=== PATIENT | female | born 1960 | race Caucasian/White ===

== ENCOUNTER 2016-08-14 13:13 | Emergency (ER) | payer SELFPAY ==
[2016-08-28] MEDS ORDERED: DELTASONE DPS20 MG PO (12:00)
[2016-08-28] MEDS ORDERED: AZITHROMYCIN500 MG PO (12:01)
[2016-08-28] MEDS ORDERED: NITROSTAT0.4 MG SL (12:01)
[2016-11-20] MEDS ORDERED: ASA CHILDREN'S81 MG PO (11:33)
[2016-11-20] MEDS ORDERED: DUONEB DPS3 ML IH (11:34)
[2016-11-20] MEDS ORDERED: COLACE-DPS100 MG PO (11:34)
[2016-11-20] MEDS ORDERED: TYLENOL DPS325 MG PO (11:34)
[2016-11-20] MEDS ORDERED: LOPRESSOR DPS50 MG PO (11:34)
[2016-11-20] MEDS ORDERED: PRILOSEC DPS20 MG PO (11:34)
== END 2016-08-14 14:40 | disposition home or self-care (01) ==
DX: R31.9 Hematuria, unspecified (principal); Z87.442 Personal history of urinary calculi; Z90.710 Acquired absence of both cervix and uterus; Z90.49 Acquired absence of other specified parts of digestive tract

== ENCOUNTER 2016-08-17 12:45 | Emergency (ER) | payer SELFPAY ==
[2016-08-28] MEDS ORDERED: DELTASONE DPS20 MG PO (12:00)
[2016-08-28] MEDS ORDERED: NITROSTAT0.4 MG SL (12:01)
[2016-08-28] MEDS ORDERED: AZITHROMYCIN500 MG PO (12:01)
--- NOTE | 2016-08-29 09:38 | ER ---
ADMIT: 08/17/2016 RM/LOC: ER [facility] MR#: [id number] [address] [address] MASTER ANGLINRHETT Percy [address] [place] [address] [place] [address] Emergency Room Report SEX: F AGE: 55 : 1960 DATE: 08/17/2016 ADDENDUM: CHIEF COMPLAINT: Dental pain. HISTORY OF PRESENT ILLNESS: This is a 55-year-old female, who has been having dental pain for the last 12 hours, going up on her left side of her face. There really is not any swelling that is noticed by me, she does have multiple dental decay. She said she has seen a dentist on 09/04 to have all her teeth pulled. CLINICAL IMPRESSION: Abscess to tooth #22, also multiple dental caries. DISPOSITION: Sent her home with amoxicillin for 10 days. I did offer to do an injection to numb the mouth. She refuses the injection, so I told her to continue Motrin and Tylenol for pain. CLINICAL IMPRESSION: 1. Abscess to her tooth. 2. Multiple dental caries. RACHEL Lee / Mir Alas MD / gerard JOB #: [id number] CC: Mir Alas MD, Attending Physician Jorge Jon MD, Family Physician
[2016-11-20] MEDS ORDERED: ASA CHILDREN'S81 MG PO (11:33)
[2016-11-20] MEDS ORDERED: COLACE-DPS100 MG PO (11:34)
[2016-11-20] MEDS ORDERED: DUONEB DPS3 ML IH (11:34)
[2016-11-20] MEDS ORDERED: LOPRESSOR DPS50 MG PO (11:34)
[2016-11-20] MEDS ORDERED: TYLENOL DPS325 MG PO (11:34)
[2016-11-20] MEDS ORDERED: PRILOSEC DPS20 MG PO (11:34)
== END 2016-08-17 14:05 | disposition home or self-care (01) ==
LOC: ER 12:45
DX: K04.7 Periapical abscess without sinus (principal); K02.9 Dental caries, unspecified; F17.210 Nicotine dependence, cigarettes, uncomplicated; Z88.8 Allergy status to other drugs, medicaments and biological substances; Z79.899 Other long term (current) drug therapy

== ENCOUNTER 2016-08-26 23:18 | Observation (INO) | payer SELFPAY ==
[~2016-08-26] VITALS: Ht 172.7 cm; Wt 82.5 kg
--- NOTE | 2016-08-27 21:22 | HP ---
ADMIT: 08/27/2016 RM/LOC: 313 [facility]#: [id number] [id number] [address] [address] FELISHA ANGLIN [address] [place] [address] ROB [place]ZQUEZ [id number] History and Physical SEX: F AGE: 55 : 1960 DATE OF SERVICE: CHIEF COMPLAINT: Chest pain. HISTORY OF PRESENT ILLNESS: This is a 55-year-old female with past medical history of tobacco abuse, presented with some left-sided chest pain. She reported she had some radiation to her left arm. It happened about 3 hours prior to presenting to the emergency room. This started suddenly while she was at rest and she said it was severe and described as tight, dull, and then radiates to her left arm which is almost like a tingling sensation. In the emergency room, she said she has some shortness of breath and associated nausea and weakness. She was concerned that this was recurrence of her pneumonia that she had about 3 weeks ago; however, she is not coughing, not having any fever or chills at this time although she said she was not then either. She does complain that she had a little bit of a cold yesterday in her sinuses and she thinks this has gone to her chest a little bit, so she has a mild cough now. At the time I was talking to her, she said she has very mild chest pain now and can barely notice it; when I asked her the number, she said it is 4/10 in severity. PAST MEDICAL HISTORY: Nothing. MEDICATIONS: None. PAST SURGICAL HISTORY: Appendectomy, cholecystectomy, and partial hysterectomy. FAMILY HISTORY: Mom at 79; she had heart disease, history of strokes, and diabetes. Father at 81; he had heart disease and strokes as well. She has a sister who has had a CABG, and she has another sister with COPD. SOCIAL HISTORY: She has smoked about half pack a day for 30 years. She has recently moved from [place] with her . She is not currently employed. REVIEW OF SYSTEMS: Other complete review of systems was obtained and negative except as above. PHYSICAL EXAMINATION: VITAL SIGNS: Temperature 96.8, pulse 74, respirations 14, blood pressure 127/80, oxygen saturation 97% to 99% on room air. GENERAL: This is a well-appearing 55-year-old female. She is in no apparent distress. She is alert and oriented. HEENT: Head is normocephalic and atraumatic. Pupils are equal, round, and reactive to light and accommodation. Her extraocular muscles are intact. She has poor dentition. NECK: Supple. Trachea midline. Thyroid not palpable. HEART: Regular rate and rhythm. LUNGS: Diminished with end-expiratory wheezes bilaterally. ABDOMEN: Soft, without any tenderness. Normal bowel sounds. EXTREMITIES: Lower extremities have no edema. She can move all extremities ADMIT: 08/27/2016 RM/LOC: 313 [facility] MR#: [id number] [address] [place] [id number] FELISHA ANGLIN [address] [place] [address] History and Physical SEX: F AGE: 55 : 1960 equally bilaterally. No abnormal rashes. NEURO: Cranial nerves are intact. LABORATORY AND X-RAY DATA: CK, troponin, and MB, all normal. EKG is normal sinus rhythm. CBC with a white count of 7.9, hemoglobin 13.9, platelets of 211. BMP; sodium 143, potassium 3.7, chloride 110, BUN 8, creatinine 0.7. Chest x-ray shows no consolidation or pathology. ASSESSMENT: 1. Chest pain. 2. Tobacco abuse. 3. Chronic obstructive pulmonary disease with exacerbation. PLAN: She has been admitted to the hospital under observation. We will monitor on telemetry, monitor cardiac enzymes. Treat her with aspirin. She has already been given nitroglycerin and this has reduced her symptoms. Her symptoms are not completely gone and we will monitor enzymes and if they come back normal, then chance of this pain being cardiac is low. Also, we have another competing reason, and her COPD with exacerbation given her long-time history of smoking and current wheezing with onset of her cold yesterday is likely a possible etiology as well. We will treat her with prednisone and antibiotics for this as well. Roe Burns MD/ gerard JOB #: [id number] CC: Roe Burns, Attending Physician Roe Burns, Family Physician
[2016-08-28] MEDS ORDERED: DELTASONE DPS20 MG PO (12:00)
[2016-08-28] MEDS ORDERED: AZITHROMYCIN500 MG PO (12:01)
[2016-08-28] MEDS ORDERED: NITROSTAT0.4 MG SL (12:01)
--- NOTE | 2016-09-01 08:46 | ER ---
ADMIT: 08/27/2016 RM/LOC: 313 [facility] MR#: [id number] [address] [address] FELISHA ANGLIN [address] [facility] [place] [address] Emergency Room Report SEX: F AGE: 55 : 1960 DATE: 08/26/2016 HISTORY OF PRESENT ILLNESS: A 55-year-old female who comes to the Emergency Department with 2-1/2 to 3 hours worth of long chest pain. Started as sudden onset, constant. It occurred while at rest. States it is severe. Described tightness, dull, sharp pressure radiating down the left arm. She also complained of shortness of breath, nausea, and weakness. It is worsened by activity. No relief by anything. She has not had similar symptoms in the past, not recently been seen by a physician. REVIEW OF SYSTEMS: Essentially negative. PAST MEDICAL HISTORY: Partial hysterectomy. She smokes but does not drink. She states she has a strong cardiac family history. PHYSICAL EXAMINATION: GENERAL: Reveals a 55-year-old female, in no acute distress. LUNGS: Clear to auscultation. CARDIOVASCULAR: Regular rate and rhythm. ABDOMEN: Soft, nontender. EXTREMITIES: Unremarkable. EDUCATION SALES CONSULTANT: No focal findings. LABORATORY DATA: EKG showed early R-wave transition. CBC and CMP within normal limits. First set of cardiac enzymes were also within normal limits. DIAGNOSIS: The patient was diagnosed with chest pain, admitted for rule out. Rad Reid MD/ gerard JOB #: [id number] CC: Roe Burns MD, Attending Physician Roe Burns MD, Family Physician
--- NOTE | 2016-09-04 06:50 | DS ---
ADMIT: 08/27/2016 RM/LOC: 313 [facility] MR#: [id number] [address] [address] FELISHA ANGLIN [address] [place] [address] [place] [address] General Discharge Summary SEX: F AGE: 55 : 1960 ADMISSION DATE: 08/27/2016 DISCHARGE DATE: 08/27/2016 FINAL DIAGNOSES: 1. Chest pain. 2. Chronic obstructive pulmonary disease with exacerbation. 3. Dental caries. I. DISCHARGE MEDICATIONS: 1. Prednisone 40 mg daily for four days. 2. Azithromycin 500 mg daily for three days. DISCHARGE INSTRUCTIONS: Follow up with me or her regular doctor in 1 to 2 weeks of her choosing. Roe Burns MD/ roxil JOB #: [id number] CC: Roe Burns MD, Attending Physician Roe Burns MD, Family Physician
[2016-11-20] MEDS ORDERED: ASA CHILDREN'S81 MG PO (11:33)
[2016-11-20] MEDS ORDERED: LOPRESSOR DPS50 MG PO (11:34)
[2016-11-20] MEDS ORDERED: COLACE-DPS100 MG PO (11:34)
[2016-11-20] MEDS ORDERED: PRILOSEC DPS20 MG PO (11:34)
[2016-11-20] MEDS ORDERED: TYLENOL DPS325 MG PO (11:34)
[2016-11-20] MEDS ORDERED: DUONEB DPS3 ML IH (11:34)
== END 2016-08-27 17:19 | disposition home or self-care (01) ==
LOC: ER 23:18 → 3ICU 08-27 00:39
PROVIDERS: ADMIT Internal Medicine
DX: R07.9 Chest pain, unspecified (principal); J44.1 Chronic obstructive pulmonary disease with (acute) exacerbation; K02.9 Dental caries, unspecified; F17.210 Nicotine dependence, cigarettes, uncomplicated; Z90.49 Acquired absence of other specified parts of digestive tract; Z90.711 Acquired absence of uterus with remaining cervical stump; Z88.6 Allergy status to analgesic agent; Z88.8 Allergy status to other drugs, medicaments and biological substances

== ENCOUNTER 2016-09-25 22:17 | Emergency (ER) | payer SELFPAY ==
[~2016-09-25 22:17] MED LIST: AZITHROMYCIN500 MG PO; DELTASONE DPS20 MG PO; NITROSTAT0.4 MG SL
--- NOTE | 2016-09-29 13:14 | ER ---
ADMIT: 09/25/2016 RM/LOC: ER [facility] MR#: [id number] [address] [address] FELISHA ANGLIN [address] [place] [address] Emergency Room Report SEX: F AGE: 56 : 1960 DATE: 09/25/2016 HISTORY OF PRESENT ILLNESS: The patient is a 56-year-old female with no chronic past medical history, was brought to the ER with chief complaint of 3 hours of anterior mid chest pain and chest discomfort, which has started gradually and is continuous. There is no radiation. The patient denies any diaphoresis. The patient denies any shortness of breath and chest pain is not pleuritic. PHYSICAL EXAMINATION: VITAL SIGNS: The patient has stable vitals. GENERAL: In mild distress. HEAD AND NECK: Normal. There is no bruit on the neck. CHEST: Clear bilaterally normal. HEART: Sounds without any murmurs. ABDOMEN: Soft and nontender and there is no pulsating mass. EXTREMITIES: The patient has no swelling or tenderness in lower extremities too. The rest of the physical examination is negative. IMAGING: EKG did not show any ST or T changes or Q-waves or arrhythmia, cardiac enzymes are negative. Chest x-ray is normal, pain was controlled. The patient received aspirin p.o. in the ER, the patient also received 3 doses of nitroglycerin 0.4 mg sublingual, which did not change the pain. Pain was moderately controlled with IV morphine. The patient was reexamined, did not develop any new symptoms, was stable in no pain or distress and was stable to be discharged home. DIAGNOSIS: Atypical chest pain. Joe Morrison MD/ gerard JOB #: [id number] CC: Joe Morrison MD, Attending Physician Jose Miguel Mock MD, Family Physician
[2016-11-20] MEDS ORDERED: ASA CHILDREN'S81 MG PO (11:33)
[2016-11-20] MEDS ORDERED: LOPRESSOR DPS50 MG PO (11:34)
[2016-11-20] MEDS ORDERED: DUONEB DPS3 ML IH (11:34)
[2016-11-20] MEDS ORDERED: PRILOSEC DPS20 MG PO (11:34)
[2016-11-20] MEDS ORDERED: COLACE-DPS100 MG PO (11:34)
[2016-11-20] MEDS ORDERED: TYLENOL DPS325 MG PO (11:34)
== END 2016-09-26 00:50 | disposition home or self-care (01) ==
LOC: ER 22:17
DX: R07.89 Other chest pain (principal); F17.200 Nicotine dependence, unspecified, uncomplicated; Z90.49 Acquired absence of other specified parts of digestive tract; Z90.710 Acquired absence of both cervix and uterus; Z88.6 Allergy status to analgesic agent

== ENCOUNTER 2016-10-09 19:17 | Emergency (ER) | payer SELFPAY ==
--- NOTE | 2016-10-15 19:38 | ER ---
ADMIT: 10/09/2016 RM/LOC: ER [facility] MR#: [id number] [address] [address] FELISHA ANGLIN [address] [place] [address] Emergency Room Report SEX: F AGE: 56 : 1960 DATE: 10/09/2016 CHIEF COMPLAINT: Neck pain. HISTORY OF PRESENT ILLNESS: A 56-year-old white female, who presents to the ER complaining of neck pain and headache. States she turned her neck wrong about 9 hours prior to arrival. Has been increasing neck pain for the last 9 hours, increasingly worse headache. She has vomited twice at home. She has a past history of migraine headaches. Denies any recent trauma to the neck. No history of any spinal surgeries. Denies any fevers, chills, chest pain, weakness, numbness, or tingling. ALLERGIES: TORADOL AND TRAMADOL. COURSE IN THE EMERGENCY ROOM: The patient was seen and examined. Afebrile and nontoxic. No acute distress. Inspection of the neck shows muscle spasm. Bilateral decreased range of motion. She has no midline tenderness. She has a limited range of motion secondary to spasm. Neurovascularly, she is intact in the upper extremities. She has good radial pulses. Light touch is intact. Lower extremities show intact to light touch. She ambulates without difficulty. Cranial nerves are normal as tested. While in the department, I did give her 10 of Reglan IM, 5 of Valium p.o., and 1000 mg of Tylenol. States she is feeling improved. Ready for discharge. IMPRESSION: 1. Neck pain. 2. Headache. DISPOSITION: The patient was discharged. Script for Flexeril 5 mg one tab p.o. t.i.d. as needed for pain or for spasm #9. She was encouraged to follow up with primary care provider with any worsening signs or symptoms. Ice and heat as needed. Keep on top of this with Tylenol and ibuprofen. Discharged home in stable condition. RACHEL Engle / Lokesh Hamilton MD / gerard JOB #: [id number] CC: Lokesh Hamilton MD, Attending Physician Marylou Quispe MD, Family Physician
[2016-11-20] MEDS ORDERED: ASA CHILDREN'S81 MG PO (11:33)
[2016-11-20] MEDS ORDERED: PRILOSEC DPS20 MG PO (11:34)
[2016-11-20] MEDS ORDERED: TYLENOL DPS325 MG PO (11:34)
[2016-11-20] MEDS ORDERED: DUONEB DPS3 ML IH (11:34)
[2016-11-20] MEDS ORDERED: COLACE-DPS100 MG PO (11:34)
[2016-11-20] MEDS ORDERED: LOPRESSOR DPS50 MG PO (11:34)
== END 2016-10-09 20:20 | disposition home or self-care (01) ==
LOC: ER 19:17
DX: M54.2 Cervicalgia (principal); R51 Headache; F17.210 Nicotine dependence, cigarettes, uncomplicated; Z88.6 Allergy status to analgesic agent; Z90.49 Acquired absence of other specified parts of digestive tract; Z90.710 Acquired absence of both cervix and uterus

== ENCOUNTER 2016-10-13 11:22 | Emergency (ER) | payer SELFPAY ==
--- NOTE | 2016-10-13 18:11 | ER ---
ADMIT: 10/13/2016 RM/LOC: ER [facility] MR#: [id number] [address] [address] FELISHA ANGLIN [address] [place] [address] Emergency Room Report SEX: F AGE: 56 : 1960 DATE: 10/13/2016 ADDENDUM: This 56-year-old female comes in with some lower abdominal pain, it goes into her back. She does have a history of kidney stones in the past. She says this feels a little bit different than that. She has had some mild nausea, but no vomiting. No change in bowel function. She does have some occasional constipation, it is not any worse at this time. She denies any urinary symptoms. On examination, she has some mild suprapubic tenderness. I do not feel any pulsatile masses in her abdomen. I did do a CT renal colic study, which shows no acute findings and checked CBC and chemistries which were both normal and a urinalysis which showed 255 red blood cells, 3+ blood, otherwise negative. At this point, patient will be treated for cystitis and is to follow up with Dr. Irene as she does not have a regular physician or with [facility]. She is to have a repeat urinalysis done to see if her hematuria clears. Celio Sandoval MD/ gerard JOB #: [id number] CC: Celio Sandoval MD, Attending Physician
[2016-11-20] MEDS ORDERED: ASA CHILDREN'S81 MG PO (11:33)
[2016-11-20] MEDS ORDERED: COLACE-DPS100 MG PO (11:34)
[2016-11-20] MEDS ORDERED: TYLENOL DPS325 MG PO (11:34)
[2016-11-20] MEDS ORDERED: LOPRESSOR DPS50 MG PO (11:34)
[2016-11-20] MEDS ORDERED: DUONEB DPS3 ML IH (11:34)
[2016-11-20] MEDS ORDERED: PRILOSEC DPS20 MG PO (11:34)
== END 2016-10-13 13:28 | disposition home or self-care (01) ==
LOC: ER 11:22
DX: N30.91 Cystitis, unspecified with hematuria (principal); F17.210 Nicotine dependence, cigarettes, uncomplicated; J44.9 Chronic obstructive pulmonary disease, unspecified; Z90.49 Acquired absence of other specified parts of digestive tract; Z90.711 Acquired absence of uterus with remaining cervical stump; Z88.6 Allergy status to analgesic agent